=== PATIENT | male | born 1945 | race Caucasian/White ===

== ENCOUNTER → 2019-01-30 | Outpatient (CLI) | payer OTHER ==
[~2019-01-30] MED LIST: ALBU90OI6 INH; AMLO10 PO; ASPI325B PO; ASPI81CH PO; CHOL10002 PO; CIPR500 PO; CLOP75 PO; CYCL10 PO; DIAZ5 PO; Desyrel50 MG PO; Diazepam5 MG PO; FERR325 PO; FISH1000 PO; Flonase 0.05% N16 GM; HYDCHL25 PO; HYDHCL25 PO; K-Dur20 MEQ PO; LISI20 PO; METO50 PO; MULVITMIND PO; Mucinex600 MG PO; NAPR500 PO; NITR.6SL SL; Nifedical Xl60 MG PO; OXYACE5T PO; POTA10T PO; PRAV20 PO; PROCODE120 PO; TAMS.4ER PO; Zestril40 MG PO
[2019-01-30 13:33] LABS: Protein, Urine Quantitative 5.4 mg/dL (0.0-11.9)
[2019-01-30 13:35] LABS: Microalbumin, Urine Quant. 9.3 mg/L (0.000-20.000)
== END | disposition home or self-care (01) ==
LOC: LAB SHORT 09:11 → LAB 09:11 → LAB FUT 01-30 09:55 → EDSTATUS 01-30 09:55
PROVIDERS: Internal Medicine Nephrology
DX: N18.3 Chronic kidney disease, stage 3 (moderate) (principal); D63.1 Anemia in chronic kidney disease; N25.81 Secondary hyperparathyroidism of renal origin; E55.9 Vitamin D deficiency, unspecified; E78.00 Pure hypercholesterolemia, unspecified; R80.9 Proteinuria, unspecified; R76.9 Abnormal immunological finding in serum, unspecified; R94.5 Abnormal results of liver function studies; R94.6 Abnormal results of thyroid function studies
CPT/HCPCS: 81050; 82043; 84156